=== PATIENT | male | born 1930 | race Caucasian/White ===

== ENCOUNTER 2017-06-25 10:50 | Day surgery (SDC) | payer MEDICARE, MEDICAID ==
[2017-06-22 07:20] VITALS: BMI 27.6
[2017-06-25] MEDS ORDERED: Gentamicin 160 MG in Sodium Chloride 0.9% 100 ML IVPB ONE (12:30)
[2017-06-25] MEDS ORDERED: Propofol 10 mg/ml Inj (20 ML) ONE (13:49)
[2017-06-25] MEDS ORDERED: Midazolam 2 MG/2 ML VIAL ONE (13:49)
[2017-06-25] MEDS ORDERED: Lidocaine 2% Jelly (Uro-Jet) ONE (13:53)
[2017-06-25] MEDS ORDERED: Ciprofloxacin 400mg/200ml D5W 400 MG/200 ML BAG IVPB ONE (13:53)
[2017-06-25] MEDS ORDERED: Lactated Ringer's 500 ML IV ONE (13:55)
[2017-06-25] MEDS ORDERED: Lactated Ringer's 1,000 ML IV ONE (14:31)
[2017-06-25] MEDS ORDERED: ePHEDrine 50 mg/ml Inj ONE (14:58)
[2017-06-25] MEDS ORDERED: HYDROmorphone 0.5 mg/0.5 ml ISec IVP PRN (15:18)
--- NOTE | 2017-06-25 15:19 | PCM.SURG1 ---
Surgeon's Initial Post Op Note - Surgeon's Notes Surgeon: Carole Casting Repairer: ZULY Type of Anesthesia: General LMA Anesthesia Administered By: staff Pre-Operative Diagnosis: BPH/WHITTEN/PHIMOSIS Operative Findings: SAME Post-Operative Diagnosis: SAME Operation Performed: TULAP Specimen/Specimens Removed: NA Estimated Blood Loss: EBL {In ML}: 0 Blood Products Given: N/A Drains Used: No Drains Post-Op Condition: Good Date of Surgery/Procedure: 06/25/17 Time of Surgery/Procedure: 15:18
[2017-06-25] MEDS ORDERED: Lactated Ringer's 1,000 ML IV SCH (15:30)
[2017-06-25 16:31] VITALS: RESP 18
[2017-06-25 17:16] VITALS: BP 117/70; PULSE 55; TEMP 98; O2SAT 100
--- NOTE | 2017-06-26 02:17 | OP ---
PROCEDURE DATE: 06/25/2017 PREOPERATIVE DIAGNOSES: Benign prostatic hypertrophy with bladder outlet obstruction and phimosis. POSTOPERATIVE DIAGNOSES: Benign prostatic hypertrophy with bladder outlet obstruction and phimosis. PROCEDURE: Transurethral laser ablation of the prostate. FINDINGS: Significant phimosis and trilobar hypertrophy of the prostate with bladder outlet obstruction. DESCRIPTION OF PROCEDURE: Patient was asked to sign the detailed informed consent regarding the GreenLight laser after full explanation of the risks, complications and limitations of GreenLight laser; and alternate methods of treating BPH with bladder outlet obstruction. Patient is also aware that this procedure will not resolve his phimosis and a separate procedure is necessary to manage that. He was brought into the room and draped and prepped in the usual manner. After prophylactic antibiotics, he was cystoscoped with a laser cystoscope and trilobar hypertrophy of the prostate was noted with significant outlet obstruction. The laser element was inserted within the scope sheath and vaporization of prostate was begun at 12 o'clock and carried down to 6 o'clock, from just distal to the bladder neck to just proximal to the verumontanum. Care was taken to avoid injury to the bladder, ureteral orifices or external sphincter or verumontanum; not occurred. Once this was completed, the opposite lobe was vaporized in a similar fashion. The patient tolerated this very well. Bladder was filled with normal saline irrigant and the scope was withdrawn; and a #20 two-way 5 mL catheter was inserted and inflated with the appropriate amount of saline. The patient was sent to the recovery room in good condition. He will follow up in our office tomorrow. Jose M Lam MD
== END 2017-06-25 17:19 | disposition home or self-care (01) ==
LOC: C.SDS 10:50
PROVIDERS: ATTEND Urology
DX: N40.1 Benign prostatic hyperplasia with lower urinary tract symptoms (principal); N32.0 Bladder-neck obstruction; N47.1 Phimosis; E10.9 Type 1 diabetes mellitus without complications
CPT/HCPCS: 52648; 82948; J0744; J1580; J7120

== ENCOUNTER 2017-12-10 10:36 | Day surgery (SDC) | payer MEDICARE, MEDICAID ==
[2017-06-22 07:20] VITALS: BMI 27.6
[2017-12-10] MEDS ORDERED: Lidocaine Hydrochloride 10 ML INJ ONE (12:23)
[2017-12-10] MEDS ORDERED: Bupivacaine HCl 0.25% PF (30 ml) Inj ONE (12:23)
[2017-12-10] MEDS ORDERED: Bupivacaine HCl 0.5% PF (30 ml) Inj ONE (14:09)
[2017-12-10] MEDS: ceFAZolin 1 gm in NS 2 GM/200 ML BAG IVPB ONE ×2 (14:25→14:35)
[2017-12-10] MEDS ORDERED: Propofol 10 mg/ml Inj (20 ML) ONE (14:27)
[2017-12-10] MEDS ORDERED: ePHEDrine 50 mg/ml Inj ONE (14:50)
[2017-12-10] MEDS ORDERED: Bacitracin Ointment 30 GM TUBE ONE (14:53)
--- NOTE | 2017-12-10 15:20 | PCM.SURG1 ---
Surgeon's Initial Post Op Note - Surgeon's Notes Surgeon: Carole Brick Cleaner: kanchan Type of Anesthesia: General LMA Anesthesia Administered By: staff Pre-Operative Diagnosis: Phimosis Operative Findings: Phimos Post-Operative Diagnosis: Phimosis Operation Performed: Phimosis Specimen/Specimens Removed: foreskin Estimated Blood Loss: EBL {In ML}: 0 Blood Products Given: N/A Drains Used: No Drains Post-Op Condition: Good Date of Surgery/Procedure: 12/10/17 Time of Surgery/Procedure: 15:20
[2017-12-10 16:24] VITALS: O2SAT 100
[2017-12-10 16:38] VITALS: BP 142/80; PULSE 82; RESP 18; TEMP 97
--- NOTE | 2017-12-11 08:39 | OP ---
PROCEDURE DATE: 12/10/2017 PREOPERATIVE DIAGNOSIS: Phimosis. POSTOPERATIVE DIAGNOSIS: Phimosis. PROCEDURE: Circumcision. DESCRIPTION OF PROCEDURE: The procedure is as follows. The patient was draped and prepped in usual manner. After he signed a detailed informed consent and being apprised of all risks and complications of this procedure, time-out was taken according to the rules and regulations of [facility]. The foreskin was removed using a modified Sleeve technique. First a dorsal slit was made so that the foreskin could be retracted backwards. The interior of the foreskin was then prepped and draped. The foreskin was then pulled distally, and using a marking pen, a circumferential incision was made around the exterior of the foreskin at the level of approximately the sulcus coronarius. The foreskin was then pulled backwards, and a second incision was made on the interior of the foreskin, approximately 1 cm behind the sulcus coronarius. The blunt sharp dissection and a Bovie cautery was used to then connect the two incisions thereby amputating the foreskin in a Sleeve fashion. The cut ends were then approximated with 3-0 Chromic sutures in a discontinuous fashion. The frenulum was reconstituted using a U-stitch. Once this was complete and there was meticulous hemostasis, dry sterile dressing was placed on the penis, and after that, the base was infiltrated with 0.5% Marcaine and Xylocaine solution for postoperative anesthesia. Jose M Lam MD
== END 2017-12-10 17:14 | disposition home or self-care (01) ==
LOC: C.SDS 10:36
PROVIDERS: ATTEND Urology
DX: N47.1 Phimosis (principal); N47.3 Deficient foreskin; N48.0 Leukoplakia of penis
CPT/HCPCS: 54150; 82948; 88304; J0690; J2704; J3010